=== PATIENT | male | born 1950 | race Two or more races ===

== ENCOUNTER 2019-02-03 08:40 | Inpatient (IN) | payer MEDICARE, SELFPAY ==
[2019-02-03] VITALS (9 sets, daily range): BP systolic 101–131; BP diastolic 58–70; PULSE 77–94; RESP 16–24; TEMP 36.6–37.3; O2SAT 92–97; BMI 45.9; BMI 44.9
--- NOTE | 2019-02-03 09:06 | ED.VIS.GEN ---
History of Present Illness Chief Complaint: Cellulitis Informant: Patient Onset: Yesterday Context: Gradual Onset Timing: Continuous Current Severity: Moderate Maximum Severity: Moderate Narrative: Patient presents with right lower extremity redness and swelling started yesterday. He did tell me that he did sustain a cat bite anterior saunders region 2 days ago. He denies any fever or chills. The redness is expanding. He has some pain that started in his inner groin region and inner thigh region. He denies abdominal pain. Pain is mild and achy Past Medical History - Allergies and Home Meds Allergies/Adverse Reactions: Allergies bee venom protein (honey bee) Allergy (Verified 02/03/19 08:45) Swelling cat dander Allergy (Verified 02/03/19 08:45) Other Primary Care Physician: Care Physician,No Primary [Primary Care Provider] - Past Medical History: - - Heart disease, cardiomyopathy, defibrillator Smoking Status: Former smoker Review of Systems All systems negative except as indicated General: Denies: Fever, Sweats Cardiovascular: Denies: Chest pain Respiratory: Denies: Dyspnea, Cough Gastrointestinal: Denies: Abdominal pain, Nausea Musculoskeletal: Reports: Extremity Pain Skin: Reports: - - Right lower extremity cellulitis as in HPI Neurological: Denies: Weakness, Parasthesia Hematologic: Denies: Easy bleeding Physical Exam Vital Signs/Narrative: Vital Signs Temp Pulse Resp BP Pulse Ox 02/03/19 08:40 98 F 94 20 H 129/67 H 96 Inital Vital Signs reviewed: Yes General: Well nourished, Well developed, Obese Head: Normocephalic ENT: Moist mucous membranes Cardiovascular: Regular rate, Regular rhythm Respiratory: No distress, CTA bilaterally Abdomen: Soft, Nontender Back: Nontender, Normal Inspection Extremities: Nontender, - - Equal edema bilaterally, right lower extremity shows cellulitis, erythema and calor. I do not appreciate any lymphangitic streaking Skin: - - Cellulitis as above Neurological: Normal Sensation. Negative for: Weakness Psychological: Normal affect Diagnostic/Tx/Re-eval - Medical Decision Making Zosyn was started. Because of the cat bite because of the possibility of early lymphadenopathy, a white count of 23,000 and, I will admit to the hospital. Disposition admit hospital ED Disposition - Plan for ED Patient: Diagnosis: Cellulitis, Cat bite involving extremity Referrals: Care Physician,No Primary [Primary Care Provider] -
[2019-02-03 09:40] LABS: Absolute Lymphocyte Count 1.31 X10^3/uL (0.83-4.51); Absolute Neutrophil Count 20.5 X10^3/uL (2.0-7.7); Basophil# 0.07 X10^3/uL; Basophil% 0.3 % (0-1); Eosinophil# 0.04 X10^3/uL; Eosinophils% 0.2 % (0-5); Hematocrit 43.1 % (40-54); Hemoglobin 14.8 g/dL (13.0-16.5); Lymphocyte # 1.31 X10^3/ul (4.0); Lymphocyte % 5.7 % (19-41); Mean Corp Hgb Conc 34.3 g/dL (32-36); Mean Corpuscular Hgb 31.9 pg (27.0-32.0); Mean Corpuscular Volume 92.9 fL (80-94); Mean Platelet Vol. 10.1 fl (6.2-12.0); Monocyte% 4.8 % (0-10); NRBC Flagged by Analyzer 0 % (0-5); Neutrophil # 20.46 X10^3/uL (2.7-7.7); Neutrophil % 88.3 % (47-70); POSITIVE DIFFERENTIAL YES; Platelet Count 195 K/mm3 (150-450); RBC Distribution Width CV 13.4 % (11.6-14.6); RBC Distribution Width SD 45.5 fl (35.1-43.9); Red Blood Count 4.64 M/mm3 (4.6-6.2); White Blood Count 23.1 K/mm3 (4.4-11.0)
[2019-02-03 09:42] LABS: Differential Indicated SCAN CRITERIA MET
[2019-02-03 09:56] LABS: ALB/GLOB Ratio 0.8 RATIO (0.9-2.4); AST(SGOT) 20 U/L (15-37); Alanine Aminotransfer ALT/SGPT 31 U/L (16-61); Albumin, Serum 3.1 g/dL (3.2-5.0); Alkaline Phosphatase 60 U/L (45-117); Anion Gap 9 (5-15); BUN 14 mg/dL (7-18); BUN/Creat Ratio 12.4 RATIO (10-20); Calcium,Total 8.5 mg/dL (8.5-10.1); Chloride 102 mmol/L (98-107); Creatinine, Serum 1.13 mg/dL (0.70-1.30); EST Glomerular Filtration Rate 69 mL/min (>60); Est Glom Filt Rate - Afr Amer 83 mL/min (>60); Estimated Creatinine Clearance 62.21 ml/min; Globulin 3.9 g/dL (2.2-4.2); Glucose 153 mg/dL (74-106); Potassium 3.8 mmol/L (3.5-5.1); Sodium Level 135 mmol/L (136-145)
[2019-02-03 09:59] LABS: Differential Comment SCANNED; Platelet Estimate ADEQUATE (ADEQ)
[2019-02-03 10:00] LABS: Red Cell Morphology NORM C+C NORMAL (NORM C&C)
--- NOTE | 2019-02-03 11:01 | ED.RN ---
DR CHILDERS INFORMED BLOOD CULTURES NOT DRAWN PRIOR TO STARTING ANTIBIOTIC. DR STATES TO NOT DRAW BLOOD CULTURES AT THIS TIME.
[2019-02-03 11:53] LABS: Lactic Acid 1.9 mmol/L (0.4-2.0)
[2019-02-03] MEDS: Albuterol 2.5 MG/3 ML VIAL.NEB. INHALATION ×2 (13:07→18:45)
--- NOTE | 2019-02-03 16:54 | CPS ---
Pt's landlord is bringing his Autopap to his room prior to bedtime tonight, Dr Williamson is aware.
[2019-02-03] MEDS: Acetaminophen 500 MG Tablet 1000 MG PO (18:38)
[2019-02-03] MEDS: Budesonide Respules 0.5 MG/2 ML AMPUL.NEB. INHALATION (18:45)
--- NOTE | 2019-02-03 18:45 | PCM.HP.STD ---
Problem List (1) Right leg redness Status: Acute (2) Nausea and vomiting Status: Acute Qualifiers: Vomiting type: unspecified Vomiting Intractability: non-intractable Qualified Code(s): R11.2 - Nausea with vomiting, unspecified (3) Chills Status: Acute History of Present Illness Date of Admission: 02/03/19 Chief Complaint: Chills, right lower leg redness, nausea and vomiting, right lower leg tenderness The patient is a 68 year old M was seen in the emergency room at [facility] with a chief complaint of right lower leg redness along with episodic nausea and vomiting and tenderness to the right lower leg area. He also complained of feeling feverish and having chills. Symptoms started yesterday, patient states he was bitten by his family cat on the right lower leg on Sunday. Patient stated that he noticed some redness yesterday in his right lower leg area but today he felt malaise and he noticed the redness had increased and he came to the emergency room for evaluation. Patient works in town here but lives in [place]. Lab was obtained in the emergency room, white blood cell count was elevated at 23.1, chemistry profile revealed a bilirubin of 1.2, glucose of 153, lactic acid was normal. Patient was afebrile in the emergency room, examination the patient's right lower leg revealed an area approximately 8 cm long x 6 cm in diameter which was reddened, tender, and warm to the touch. Patient was admitted to [place] [id number] for acute right lower leg cellulitis with sepsis. Past Medical History Allergies bee venom protein (honey bee) Allergy (Verified 02/03/19 08:45) Swelling cat dander Allergy (Verified 02/03/19 08:45) Other Home Medications: Ambulatory Orders Medication Instructions Recorded Albuterol Sulfate [Albuterol 2 puff INHALATION Q4H PRN PRN 02/03/19 Sulfate Hfa] Furosemide [Lasix] 20 mg PO 1200 PRN 02/03/19 Furosemide [Lasix] 40 mg PO DAILY 02/03/19 Metoprolol Succinate 25 mg PO DAILY 02/03/19 Mometasone/Formoterol [Dulera 200 2 puff INHALATION BID 02/03/19 Mcg/5 Mcg Inhaler] Montelukast [Singulair] 10 mg PO QHS 02/03/19 Sacubitril/Valsartan 97-103 mg 1 tab PO BID 02/03/19 Spironolactone 25 mg PO DAILY 02/03/19 Surgical History: appendectomy, - - A ICD insertion Psychiatric History: No pertinent psych hx Lives: Spouse/ Significant Other Smoking Status: Former smoker Tobacco Use: Cigarettes Alcohol: Occasional Drugs: None - *Family History Maternal History Items: Cancer - Lymphoma, Diabetes, Hypertension Paternal History Items: Cancer - Prostate cancer, Diabetes, - - Heart failure Review of Systems Constitutional: Reports: Chills, Fever, Malaise. Denies: Anorexia, Night Sweats, Weakness, Weight Change, Fatigue Eyes: Denies: Cataracts, Conjunctivae Inflammation, Double vision, Drainage, Redness HEENT: Denies: Difficulty Swallowing, Dysphasia, Ear Pain, Eye Pain, Hearing Changes, Nasal bleeding, Nasal Congestion, Post Nasal Drip Cardiovascular: Denies: Chest Pain, Claudication, Chest Pressure, Chest Tightness, Edema, Heaviness, Palpitations Respiratory: Denies: Cough, Hemoptysis, Pleuritic Pain, Shortness of Breath, Shortness of breath at rest, Shortness of breath upon exertion Gastrointestinal: Reports: Nausea, Vomiting. Denies: Abdominal Pain, Constipation, Diarrhea, Hematemesis, Hematochezia, Melena Genitourinary: Denies: Dysuria, Frequency, Hematuria, Hesitancy, Urgency Musculoskeletal: Reports: Leg Pain - Complaints of right lower leg redness and tenderness. Denies: Back Pain, Foot Pain, Hand Pain, Joint Pain, Joint stiffness, Joint swelling Skin: Reports: Rash - Right lower leg rash, Wounds - Positive for small puncture wound to right mid lower leg. Denies: Dryness, Pruritis Neurological: Denies: Blurred vision, Double vision, Slurred speech, Difficulty swallowing, Focal weakness, Headaches, Incoordination, Numbness, Tingling Psychiatric: Denies: Anxiety, Depression, Homicidal Ideations, Suicidal Ideations Endocrine: Denies: Change in Body Habitus, Heat/ Cold Intolerance, Polydipsia, Polyuria Hematologic/ Lymphatic: Denies: Adenopathy, Anemia, Easy Bruising, Easy Bleeding, Petechiae, Purpura VTE Information - Inpt Only VTE Present on Admission: No VTE Mechan Device Prophylaxis: None VTE Pharm Prophylaxis ordered?: Yes Patient Problems: Active and Suspected Problems Cellulitis (Acute) Cat bite involving extremity (Acute) Right leg redness (Acute) Nausea and vomiting (Acute) Chills (Acute) - Physical Exam General: Alert, Oriented x3, Cooperative, No apparent distress, Well developed, Well nourished HEENT: Atraumatic, PERRLA, EOMI, Normocephalic Oral: Moist Mucosa Neck: Supple, No JVD, Negative Carotid Bruits, Trachea Midline, Thyroid Normal Size and Texture Lungs: Clear to auscultation, Normal air movement, No rhonchi, No wheeze, No rales Cardiovascular: Regular rate, Regular Rhythm, Normal S1, Normal S2, No murmurs, PMI Normal, No rub noted, No Gallop Abdomen: Bowel Sounds Present, Soft, Non Tender, Non-Distended, Obese, No hernias noted Extremities: No clubbing, No cyanosis, Capillary Refill Less than 3 Seconds, - - There is noted to be an area of edema and redness over the patient's right lower leg toward its lateral aspect, this area is approximately 6 cm wide by 8 cm long, there is also noted to be a small puncture wound above this reddened area, no discharge is noted from the puncture wound. Skin: - - Small puncture wound is noted to the midportion of the right lower leg on its anterior aspect there is redness noted over the right lower leg as described previously Neurological: Cranial nerves II-XII grossly intact, Neuro grossly intact, Sensory exam intact to light touch and pain, Coordination normal Psych/Mental Status: Normal Affect, Appropriate, Alert and oriented to time, place, person, mood and affect Vital Signs Temp Pulse Resp BP Pulse Ox 99.2 F H 87 16 123/64 H 95 02/03/19 14:37 02/03/19 14:37 02/03/19 14:37 02/03/19 14:37 02/03/19 14:37 Oxygen Delivery Method Room Air Weight: 136 kg Body Mass Index (BMI) 44.9 Intake and Output for Last 24 Hours 02/01/19 02/02/19 02/03/19 23:59 23:59 23:59 Intake Total 375 / 375 Balance 375 / 375 Laboratory Tests Past 24 Hrs 02/03/19 02/03/19 02/03/19 09:25 09:25 11:05 WBC 23.1 H RBC 4.64 Hgb 14.8 Hct 43.1 MCV 92.9 MCH 31.9 MCHC 34.3 RDW Std Deviation 45.5 H RDW Coeff of Sumeet 13.4 Plt Count 195 MPV 10.1 Immature Gran % (Auto) 0.700 Neut % (Auto) 88.3 H Lymph % (Auto) 5.7 L [place] % (Auto) 4.8 Eos % (Auto) 0.2 Baso % (Auto) 0.3 Absolute Neuts (auto) 20.5 H Absolute Lymphs (auto) 1.31 Nucleated RBC % 0 Differential Comment SCANNED Platelet Estimate ADEQUATE RBC Morphology NORM C+C Sodium 135 L Potassium 3.8 Chloride 102 Carbon Dioxide 24.0 Anion Gap 9 BUN 14 Creatinine 1.13 Estim Creat Clear Calc 62.21 Est GFR (MDRD) Af Amer 83 Est GFR (MDRD) Non-Af 69 BUN/Creatinine Ratio 12.4 Glucose 153 H Lactic Acid 1.9 Calcium 8.5 Total Bilirubin 1.20 H AST 20 ALT 31 Alkaline Phosphatase 60 Total Protein 7.0 Albumin 3.1 L Globulin 3.9 Albumin/Globulin Ratio 0.8 L Assessment/Plan All Active Problems Cellulitis (Acute) Cat bite involving extremity (Acute) Right leg redness (Acute) Nausea and vomiting (Acute) Chills (Acute) #1 sepsis and cellulitis of the right lower leg secondary to puncture wound from cat-patient was admitted to [facility] 3, he will be maintained on IV Zosyn, labs will be monitored #2 cardiomyopathy-chronic, patient states this is secondary to chronic high-dose corticosteroid usage for asthma #3 adult asthma #4 obesity #5 nausea and [id number] unclear at this point Code Visit Inpatient E&M: 26445 Init Hosp L3
[2019-02-03] MEDS: SACUBITRIL/VALSARTAN 49-51 MG TABLET 2 EACH PO (21:31)
[2019-02-03] MEDS: Montelukast 10 MG Tablet PO (21:31)
[2019-02-04] VITALS (9 sets, daily range): BP systolic 92–124; BP diastolic 59–71; PULSE 72–95; RESP 16–20; TEMP 36.7–37.2; O2SAT 95–100
[2019-02-04 06:05] LABS: Absolute Lymphocyte Count 1.32 X10^3/uL (0.83-4.51); Absolute Neutrophil Count 11.4 X10^3/uL (2.0-7.7); Basophil# 0.06 X10^3/uL; Basophil% 0.4 % (0-1); Eosinophil# 0.18 X10^3/uL; Eosinophils% 1.3 % (0-5); Hematocrit 43.3 % (40-54); Hemoglobin 13.8 g/dL (13.0-16.5); Lymphocyte # 1.32 X10^3/ul (4.0); Lymphocyte % 9.6 % (19-41); Mean Corp Hgb Conc 31.9 g/dL (32-36); Mean Corpuscular Hgb 30.3 pg (27.0-32.0); Mean Corpuscular Volume 95.2 fL (80-94); Mean Platelet Vol. 10.3 fl (6.2-12.0); Monocyte# 0.66 X10^3/uL; Monocyte% 4.8 % (0-10); NRBC Flagged by Analyzer 0 % (0-5); Neutrophil # 11.43 X10^3/uL (2.7-7.7); Neutrophil % 83.2 % (47-70); Platelet Count 192 K/mm3 (150-450); RBC Distribution Width CV 13.6 % (11.6-14.6); RBC Distribution Width SD 47.4 fl (35.1-43.9); Red Blood Count 4.55 M/mm3 (4.6-6.2); White Blood Count 13.7 K/mm3 (4.4-11.0)
[2019-02-04] MEDS: Budesonide Respules 0.5 MG/2 ML AMPUL.NEB. INHALATION ×2 (07:06→18:45)
[2019-02-04] MEDS: Albuterol 2.5 MG/3 ML VIAL.NEB. INHALATION ×3 (07:06→18:45)
[2019-02-04] MEDS: Furosemide 20 MG Tablet 40 MG PO (09:23)
[2019-02-04] MEDS: SACUBITRIL/VALSARTAN 49-51 MG TABLET 2 EACH PO ×2 (09:23→23:08)
[2019-02-04] MEDS: Metoprolol(XL)Succ 25 MG Tablet PO (09:23)
[2019-02-04] MEDS: Spironolactone 25 MG Tablet PO (09:24)
--- NOTE | 2019-02-04 11:35 | CASEMGMT ---
RN PEREZ Face to Face with patient for initial transition planning/care coordination assessment. RN CM introduced self and role at [facility]. Patient sitting in chair, alert and oriented. Patient willing to participate in assessment and is able to answer all questions appropriately. Care providers, pharmacy, and demographics verified. Patient wishes to discharge home, denies need for home health at this time. Patient states he has no further needs or concerns at this time. CM to follow for discharge planning needs that may arise. PCP: New to area, PCP list provided. Specialists: none Preferred Pharmacy: [facility] Insurance: [facility] A Prescription Benefit: yes Living Will/HPOA: yes, Donald Drake LNOK: Living Arrangements: patient lives in single story home. Patient is independent at home. Transportation: self/ DME/HHC: Patient states he has autopap and nebulizer at home. Disposition Plan: Patient to discharge home with family support and follow-up plans in place. Lupis SIMEON, RN, CM
--- NOTE | 2019-02-04 18:25 | PN_ITS ---
Patient Problems: Active and Suspected Problems Cellulitis (Acute) Cat bite involving extremity (Acute) Right leg redness (Acute) Nausea and vomiting (Acute) Chills (Acute) Subjective: Patient was seen and examined today, his white blood cell count today was 13.7. Patient still has a reddened area over his right lower leg similar to that on admission, the area is still warm to the touch and tender to the touch. There is some generalized edema in the right lower leg which was present yesterday. Patient remains afebrile at this time. I have decided to continue the patient's current antibiotics due to his improvement in his white blood cell count. - Physical Exam General: Alert, Oriented x3, Cooperative HEENT: Atraumatic, PERRLA, EOMI, Normocephalic Oral: Moist Mucosa Neck: Supple, No JVD, Negative Carotid Bruits Lungs: Clear to auscultation, Normal air movement, No rhonchi, No wheeze, No rales Cardiovascular: Regular rate, No murmurs Abdomen: Bowel Sounds Present, Soft, Non Tender, Non-Distended, No hernias noted Extremities: No clubbing, No cyanosis, Capillary Refill Less than 3 Seconds, Edema - Edema is noted over the patient's right lower leg, the edema is generalized Skin: No breakdown, Rash Present - There is redness noted over the patient's right lower leg as described previously Musculoskeletal: No Tenderness to Palpation of Joints or Extremities Neurological: Cranial nerves II-XII grossly intact, Neuro grossly intact, Sensory exam intact to light touch and pain Psych/Mental Status: Normal Affect, Appropriate, Alert and oriented to time, place, person, mood and affect Vital Signs Temp Pulse Resp BP Pulse Ox 98.1 F 86 16 92/59 L 95 02/04/19 14:30 02/04/19 14:30 02/04/19 14:30 02/04/19 14:30 02/04/19 14:30 Oxygen Delivery Method Room Air Weight: 136 kg Body Mass Index (BMI) 44.9 Intake and Output for Last 24 Hours 02/02/19 02/03/19 02/04/19 23:59 23:59 23:59 Intake Total 425 / 747 572.00 / 572.00 Output Total 850 / 1850 1000 / 1000 Balance -425 / -1103 -428.00 / -428.00 Laboratory Tests Past 24 Hrs 02/04/19 05:27 WBC 13.7 H RBC 4.55 L Hgb 13.8 Hct 43.3 MCV 95.2 H MCH 30.3 MCHC 31.9 L RDW Std Deviation 47.4 H RDW Coeff of Sumeet 13.6 Plt Count 192 MPV 10.3 Immature Gran % (Auto) 0.700 Neut % (Auto) 83.2 H Lymph % (Auto) 9.6 L [place] % (Auto) 4.8 Eos % (Auto) 1.3 Baso % (Auto) 0.4 Absolute Neuts (auto) 11.4 H Absolute Lymphs (auto) 1.32 Nucleated RBC % 0 Medical Necessity - Tobacco Use Smoking Status: Former smoker Tobacco Use: Cigarettes Assessment/Plan All Active Problems Cellulitis (Acute) Cat bite involving extremity (Acute) Right leg redness (Acute) Nausea and vomiting (Acute) Chills (Acute) #1 sepsis and cellulitis of the right lower leg secondary to puncture wound from cat-patient will remain on his present antibiotics, I will repeat labs tomorrow #2 cardiomyopathy-chronic, patient states this is secondary to chronic high-dose corticosteroid usage for asthma #3 adult asthma #4 obesity #5 nausea and [id number] unclear at this point Code Visit Inpatient E&M: 67971 Subs Hosp L2
[2019-02-04] MEDS: 0.9% NaCl Peripheral Flush Adult/Peds IV (22:49)
[2019-02-04] MEDS: Montelukast 10 MG Tablet PO (22:57)
[2019-02-05 05:18] VITALS: BP 109/66; PULSE 76; RESP 18; TEMP 36.6; O2SAT 95
[2019-02-05] MEDS: 0.9% NaCl Peripheral Flush Adult/Peds IV (05:23)
[2019-02-05 06:46] VITALS: PULSE 85; RESP 20
[2019-02-05] MEDS: Budesonide Respules 0.5 MG/2 ML AMPUL.NEB. INHALATION (06:46)
[2019-02-05] MEDS: Albuterol 2.5 MG/3 ML VIAL.NEB. INHALATION ×2 (06:47→13:21)
[2019-02-05 08:53] LABS: Absolute Lymphocyte Count 1.36 X10^3/uL (0.83-4.51); Absolute Neutrophil Count 6.9 X10^3/uL (2.0-7.7); Basophil# 0.03 X10^3/uL; Basophil% 0.3 % (0-1); Eosinophil# 0.28 X10^3/uL; Hematocrit 43.8 % (40-54); Hemoglobin 14.5 g/dL (13.0-16.5); Lymphocyte # 1.36 X10^3/ul (4.0); Lymphocyte % 14.6 % (19-41); Mean Corp Hgb Conc 33.1 g/dL (32-36); Mean Corpuscular Hgb 31.1 pg (27.0-32.0); Mean Platelet Vol. 10.3 fl (6.2-12.0); Monocyte% 7.5 % (0-10); NRBC Flagged by Analyzer 0 % (0-5); Neutrophil % 74.1 % (47-70); Platelet Count 216 K/mm3 (150-450); RBC Distribution Width CV 13.5 % (11.6-14.6); RBC Distribution Width SD 46.4 fl (35.1-43.9); Red Blood Count 4.66 M/mm3 (4.6-6.2); White Blood Count 9.3 K/mm3 (4.4-11.0)
[2019-02-05 10:38] VITALS: BP 113/70; PULSE 75; RESP 18; TEMP 36.7; O2SAT 98
[2019-02-05 10:40] VITALS: PULSE 75
[2019-02-05] MEDS: Furosemide 20 MG Tablet 40 MG PO (10:40)
[2019-02-05] MEDS: Metoprolol(XL)Succ 25 MG Tablet PO (10:40)
[2019-02-05] MEDS: Spironolactone 25 MG Tablet PO (10:41)
[2019-02-05] MEDS: SACUBITRIL/VALSARTAN 49-51 MG TABLET 2 EACH PO (10:41)
[2019-02-05 13:21] VITALS: PULSE 82; RESP 16
--- NOTE | 2019-02-05 15:12 | DCINST_ITS ---
- Discharge Diagnoses Current Active Problems: Current Active and Chronic Problems Cellulitis (Acute) Cat bite involving extremity (Acute) Right leg redness (Acute) Nausea and vomiting (Acute) Chills (Acute) You will use the following diet at home:: No restrictions Your food should be the consistency of: Regular Your liquids should be the consistency of: Regular/Thin Discharge Activity: Return to Normal Activity Return to work on:: 02/11/19 Weight Bearing Status: Weight bearing as tolerated Allergies/Adverse Reactions: Allergies bee venom protein (honey bee) Allergy (Verified 02/03/19 08:45) Swelling cat dander Allergy (Verified 02/03/19 08:45) Other Medications to take at Discharge Albuterol Sulfate [Albuterol Sulfate Hfa] 2 puff INHALATION Q4H PRN PRN 02/03/19 Furosemide [Lasix] 20 mg PO 1200 PRN 02/03/19 Furosemide [Lasix] 40 mg PO DAILY 02/03/19 Metoprolol Succinate 25 mg PO DAILY 02/03/19 Mometasone/Formoterol [Dulera 200 Mcg/5 Mcg Inhaler] 2 puff INHALATION BID 02/03/19 Montelukast [Singulair] 10 mg PO QHS 02/03/19 Sacubitril/Valsartan 97-103 mg 1 tab PO BID 02/03/19 Spironolactone 25 mg PO DAILY 02/03/19 Amox/Clavulanate Tablet [Augmentin Tablet] 875 mg PO BID #15 tab 02/05/19 The following prescriptions were given: Amox/Clavulanate Tablet [Augmentin Tablet] 875 mg PO BID #15 tab Transmission Status: Pending to [facility] Primary Care Physician: Care Physician,No Primary [Primary Care Provider] - Please follow up with your Primary Care Physician in: one to two weeks Test Results: Test results from this visit will be discussed in further detail at your follow- up appointment, if applicable.
[2019-02-05 15:40] VITALS: BP 124/76; PULSE 80; RESP 18; TEMP 36.8; O2SAT 98
--- NOTE | 2019-02-06 12:08 | PCM.DC.SUM ---
Discharge Date and Diagnosis Date of Admission: 02/03/19 Date of Discharge: 02/05/19 - Primary Discharge Diagnosis #1 sepsis and cellulitis of the right lower leg secondary to puncture wound from cat #2 cardiomyopathy-chronic #3 adult asthma #4 obesity #5 nausea and vomiting-etiology unclear Hospital Course and Treatment Operations: None Procedures: None Summary of Care Provided: The patient is a 68 year old M who was seen in the emergency room at [facility] chief complaint of redness and tenderness in his right lower leg. Patient has been bitten by his A few days prior in the vicinity of the redness. Work-up in the emergency room included a white blood cell count elevation at 23.1, patient's chemistry profile was unremarkable. Patient was felt to have cellulitis of his right lower leg, he was admitted to [facility] and treated with IV antibiotics, his redness improved over his hospitalization there were no complications. On examination he appeared in good health and spirits. Vital signs as documented. Skin warm and dry and without overt rashes. Neck without JVD. Lungs clear. Heart exam notable for regular rhythm, normal sounds and absence of murmurs, rubs or gallops. Abdomen unremarkable and without evidence of organomegaly, masses, or abdominal aortic enlargement. Extremities-generalized edema is noted over the patient's right lower leg which is not severe, there is redness noted in an area just above the ankle and distal to the knee on the right leg.. Neuro: Cranial nerves II through XII are grossly intact, no focal motor deficits were noted, sensation to light touch and pinprick intact. Psych: Patient is alert and oriented x3, he does not appear anxious or depressed On 02/05/2019, patient was seen and examined and felt to be in stable condition for discharge home - Physical Exam Vital Signs Temp Pulse Resp BP Pulse Ox 98.2 F 80 18 124/76 H 98 02/05/19 15:40 02/05/19 15:40 02/05/19 15:40 02/05/19 15:40 02/05/19 15:40 Oxygen Delivery Method Room Air Weight: 136 kg Body Mass Index (BMI) 44.9 Intake and Output for Last 24 Hours 02/04/19 02/05/19 02/06/19 23:59 23:59 23:59 Intake Total 872.00 / 872.00 800 / 800 Output Total 1000 / 1000 Balance -128.00 / -128.00 800 / 800 Microbiology Past 72 Hours 02/03/19 14:20 Blood Culture - Preliminary Blood Culture (Wb) - Anticubital Right No growth in 48 hours. 02/03/19 13:10 Blood Culture - Preliminary Blood Culture (Wb) - Anticubital Right No growth in 48 hours. Discharge Activity: Return to Normal Activity Return to work on:: 02/11/19 Weight Bearing Status: Weight bearing as tolerated Home Medications: Medications to take at Discharge Albuterol Sulfate [Albuterol Sulfate Hfa] 2 puff INHALATION Q4H PRN PRN 02/03/19 Furosemide [Lasix] 20 mg PO 1200 PRN 02/03/19 Furosemide [Lasix] 40 mg PO DAILY 02/03/19 Metoprolol Succinate 25 mg PO DAILY 02/03/19 Mometasone/Formoterol [Dulera 200 Mcg/5 Mcg Inhaler] 2 puff INHALATION BID 02/03/19 Montelukast [Singulair] 10 mg PO QHS 02/03/19 Sacubitril/Valsartan 97-103 mg 1 tab PO BID 02/03/19 Spironolactone 25 mg PO DAILY 02/03/19 Amox/Clavulanate Tablet [Augmentin Tablet] 875 mg PO BID #15 tab 02/05/19 Following Prescrptions Were Given to Patient: Amox/Clavulanate Tablet [Augmentin Tablet] 875 mg PO BID #15 tab Transmission Status: Received by [facility] Primary Care Physician: Care Physician,No Primary [Primary Care Provider] - Please follow up with your Primary Care Physician in: one to two weeks Disposition: Home Minutes spent on discharge:: 32 Patient Condition:: Stable Medical Necessity - Tobacco Use Smoking Status: Former smoker Tobacco Use: Cigarettes Meaningful Use Info Meaningful Use Diagnoses (Choose all that apply): None applicable Code Visit Inpatient E&M: 87709 Disch Hosp
== END 2019-02-05 16:29 | disposition home or self-care (01) | DRG 872 ==
LOC: ED 09:20 → MS3 11:10
PROVIDERS: Admitting Provider Internal Medicine; Emergency Provider Emergency Medicine; Referring Provider Internal Medicine; Visit Provider Internal Medicine
DX: A41.9 Sepsis, unspecified organism (principal); L03.115 Cellulitis of right lower limb; I42.9 Cardiomyopathy, unspecified; Z68.41 Body mass index [BMI] 40.0-44.9, adult; S81.851A Open bite, right lower leg, initial encounter; W55.01XA Bitten by cat, initial encounter; E66.9 Obesity, unspecified; J45.909 Unspecified asthma, uncomplicated; R11.2 Nausea with vomiting, unspecified; Z87.891 Personal history of nicotine dependence
CPT/HCPCS: 36415; 80053; 83605; 85025; 87040; 94640; 97802; 99284; J7050; A4216